=== PATIENT | female | born 1940 | race Caucasian/White ===

== ENCOUNTER 2017-05-27 22:38 | Observation (INO) ==
[2017-05-28] MEDS ORDERED: LABETALOL 20 MG/4 ML SYRINGE IV PRN (03:14)
[2017-05-28] MEDS: traMADol 50 MG TABLET PO PRN ×2 (03:50→14:14)
[2017-05-28 06:17] LABS: Bilirubin,Total 0.6 MG/DL (0.2-1.0); Calcium 8.6 MG/DL (8.5-10.1); Osmolality,Calculated 282.1 MOS/KG (273-304); Potassium 3.2 MMOL/L (3.5-5.1); Total Protein 5.8 G/DL (6.4-8.3)
[2017-05-28 06:20] LABS: Risk Ratio 3.05; VLDL CHOLESTEROL 20.4 MG/DL
[2017-05-28 08:18] LABS: Basophils % 0.7 % (0.0-0.8); Eosinophils # 0.1 10*3/uL (0.0-0.87); Eosinophils % 1.9 % (0.00-10.9); Hematocrit 38.5 VOL% (35.7-47.0); Hemoglobin 12.9 GM/DL (12.0-16.0); Immature Granulocytes % 1.5 %; Immature Granulocytes Absolute 0.09 #; Lymphocytes # 1.3 10*3/uL (1.4-4.0); Lymphocytes % 21.3 % (21.3-54.2); Mean Corpuscular HGB Conc 33.5 GM/DL (32-36); Mean Corpuscular Hemoglobin 31 PG (27-34); Mean Corpuscular Volume 93.2 FL (87-102); Mean Platelet Volume 10.2 FL (9.6-12.0); Monocytes # 0.6 10*3/uL (0.11-0.8); Monocytes % 9.4 % (1.7-12.7); Neutrophils # 3.8 10*3/uL (1.4-7.4); Neutrophils % 65.2 % (38.7-73.9); Platelet Count 260 T/CUMM (130-400); Red Blood Count 4.13 MC/CUMM (3.8-5.5); Red Cell Distribution Width 14.6 % (9.3-17.3); White Blood Count 5.9 T/CUMM (4-12)
[2017-05-28] MEDS: OMEGA 3 ACID ETHYL ESTERS 1 GM CAPSULE PO SCH ×2 (08:50→20:34)
[2017-05-28] MEDS: MULTIVITAMIN (OCUVITE) TABLET PO SCH (08:50)
[2017-05-28] MEDS: CALCIUM (CARBONATE)/VITAMIN D 600 MG-400 UNIT TABLET PO SCH (08:50)
[2017-05-28] MEDS: PANTOPRAZOLE 40 MG TABLET PO SCH ×2 (08:50→20:34)
[2017-05-28] MEDS: SPIRONOLACTONE 25 MG TABLET PO SCH (08:50)
[2017-05-28] MEDS: ASPIRIN 325 MG TABLET PO SCH (08:50)
[2017-05-28] MEDS: POTASSIUM CHLORIDE 20 MEQ TABLET PO SCH (08:51)
[2017-05-28] MEDS: VERAPAMIL SR 120 MG TABLET PO SCH (08:54)
[2017-05-28] MEDS: FUROSEMIDE 80 MG TABLET PO SCH (08:55)
[2017-05-28] MEDS: ENOXAPARIN 40 MG/0.4 ML SYRINGE SUBCUT SCH (08:56)
[2017-05-28] MEDS ORDERED: POTASSIUM CHLORIDE 20 MEQ TABLET PO ONE (11:37)
[2017-05-28] MEDS ORDERED: EZETIMIBE 10 MG TABLET PO SCH (21:00)
[2017-05-28] MEDS ORDERED: ATORVASTATIN 20 MG TABLET PO SCH (21:00)
[2017-05-29] MEDS: traMADol 50 MG TABLET PO PRN (02:10)
[2017-05-29 07:33] LABS: Basophils % 0.6 % (0.0-0.8); Eosinophils # 0.1 10*3/uL (0.0-0.87); Eosinophils % 2.8 % (0.00-10.9); Hematocrit 37.5 VOL% (35.7-47.0); Hemoglobin 12.5 GM/DL (12.0-16.0); Immature Granulocytes % 1.8 %; Immature Granulocytes Absolute 0.09 #; Lymphocytes # 1.1 10*3/uL (1.4-4.0); Lymphocytes % 22.4 % (21.3-54.2); Mean Corpuscular HGB Conc 33.3 GM/DL (32-36); Mean Corpuscular Hemoglobin 31 PG (27-34); Mean Corpuscular Volume 92.8 FL (87-102); Mean Platelet Volume 9.5 FL (9.6-12.0); Monocytes # 0.5 10*3/uL (0.11-0.8); Monocytes % 9.9 % (1.7-12.7); Neutrophils # 3.2 10*3/uL (1.4-7.4); Neutrophils % 62.5 % (38.7-73.9); Platelet Count 257 T/CUMM (130-400); Red Blood Count 4.04 MC/CUMM (3.8-5.5); Red Cell Distribution Width 14.3 % (9.3-17.3); White Blood Count 5.1 T/CUMM (4-12)
[2017-05-29] MEDS ORDERED: RIVAROXABAN 20 MG TABLET PO SCH ×2 (08:00→17:00)
[2017-05-29 08:03] LABS: Calcium 8.2 MG/DL (8.5-10.1); Osmolality,Calculated 278.3 MOS/KG (273-304); Potassium 3.3 MMOL/L (3.5-5.1)
[2017-05-29] MEDS: CALCIUM (CARBONATE)/VITAMIN D 600 MG-400 UNIT TABLET PO SCH (09:28)
[2017-05-29] MEDS: VERAPAMIL SR 120 MG TABLET PO SCH (09:28)
[2017-05-29] MEDS: ENOXAPARIN 40 MG/0.4 ML SYRINGE SUBCUT SCH (09:28)
[2017-05-29] MEDS: PANTOPRAZOLE 40 MG TABLET PO SCH (09:28)
[2017-05-29] MEDS: OMEGA 3 ACID ETHYL ESTERS 1 GM CAPSULE PO SCH (09:28)
[2017-05-29] MEDS: SPIRONOLACTONE 25 MG TABLET PO SCH (09:29)
[2017-05-29] MEDS: POTASSIUM CHLORIDE 20 MEQ TABLET PO SCH (09:29)
[2017-05-29] MEDS: FUROSEMIDE 80 MG TABLET PO SCH (09:29)
[2017-05-29] MEDS: MULTIVITAMIN (OCUVITE) TABLET PO SCH (09:30)
[2017-05-29] MEDS: ASPIRIN 325 MG TABLET PO SCH (09:30)
[2017-05-29] MEDS ORDERED: POTASSIUM CHLORIDE 20 MEQ TABLET PO ONE (10:30)
[2017-05-29 12:05] VITALS: BP 93/64
[2017-05-29] MEDS ORDERED: ATORVASTATIN 40 MG TABLET PO SCH (21:00)
[2017-05-30] MEDS ORDERED: ASPIRIN EC 81 MG TABLET PO SCH (09:00)
== END 2017-05-29 13:00 | disposition home or self-care (01) ==
LOC: N.2E → SUATTDRO 05-28 00:48
PROVIDERS: ADMIT Internal Medicine; ATTEND Internal Medicine